=== PATIENT | female | born 1990 | race Caucasian/White ===

== ENCOUNTER 2016-09-28 22:36 | Inpatient (IN) | payer OTHER ==
[~2016-09-28] VITALS: Ht 154.9 cm; Wt 80.7 kg
[2016-09-28 22:44] VITALS: BP 122/75
[2016-09-29 00:29] LABS: BASOPHILS # (AUTO) 0.4 K/uL (0.00-0.22); EOSINOPHILS # (AUTO) 0.3 K/uL (0-0.4); EOSINOPHILS % (AUTO) 2.6 % (0.0-4.0); HEMATOCRIT 34.1 % (36-48); HEMOGLOBIN 11.3 g/dL (12.0-16.0); LYMPHOCYTES # (AUTO) 2.2 K/uL (2.5-16.5); LYMPHOCYTES % (AUTO) 22.5 % (20.5-51.1); MEAN CORPUSCULAR HEMOGLOBIN 30 pg (27-31); MEAN CORPUSCULAR HGB CONC 33 g/dL (33-37); MEAN CORPUSCULAR VOLUME 92 fL (80-94); MONOCYTES # (AUTO) 0.6 K/uL (0.8-1.0); MONOCYTES % (AUTO) 6.4 % (1.7-9.3); NEUTROPHILS # (AUTO) 6.4 K/uL (1.8-7.7); NEUTROPHILS % (AUTO) 64.5 % (42.2-75.2); PLATELET COUNT (AUTO) 280 K/uL (140-450); RED BLOOD CELL COUNT(AUTO) 3.71 MIL/uL (4.20-5.40); RED CELL DISTRIBUTION WIDTH 12.3 % (11.6-13.7); WHITE BLOOD COUNT (AUTO) 9.9 K/uL (4.8-10.8)
[2016-09-29 00:41] LABS: ALBUMIN 3.4 g/dL (3.4-5.0); ANION GAP 12.3 (8-16); CALCIUM 8.8 mg/dL (8.5-10.1); CARBON DIOXIDE 26.2 mmol/L (21-32); CREATININE 0.8 mg/dL (0.6-1.3); POTASSIUM 3.5 mmol/L (3.5-5.1); THYROID STIMULATING HORMONE 2.72 uIU/mL (0.34-3.74); TOTAL BILIRUBIN 0.2 mg/dL (0.0-1.0); TOTAL PROTEIN, SERUM 7.4 g/dL (6.4-8.2)
[2016-09-29 00:43] LABS: PARTIAL THROMBOPLASTIN TIME 28.5 secs (22-35.6); PROTHROMBIN TIME 10.6 secs (10.8-13.4)
[2016-09-29] MEDS ORDERED: NACL 0.9% 1,000 ML IV SCH ×2 (03:59→04:40)
[2016-09-29] MEDS ORDERED: DOCUSATE SODIUM 100 MG GELCAP PO PRN (04:00)
[2016-09-29] MEDS ORDERED: MORPHINE SULFATE 2 MG/ML SYR IVP PRN (04:00)
[2016-09-29] MEDS ORDERED: HYDROcodone/APAP 7.5/325 MG 1 TAB PO PRN (04:00)
[2016-09-29] MEDS ORDERED: ACETAMINOPHEN 325 MG TAB PO PRN (04:00)
[2016-09-29] MEDS ORDERED: ONDANSETRON 4 MG/2 ML VIAL IM/IVP PRN (04:00)
[2016-09-29 04:23] LABS: APPEARANCE,URINE SL CLOUDY (CLEAR); BILIRUBIN,URINE NEGATIVE (NEGATIVE); BLOOD, URINE TRACE-I (NEGATIVE); COLOR,URINE YELLOW (YELLOW); LEUKOCYTE ESTERASE ,URINE NEGATIVE (NEGATIVE); NITRITE, URINE NEGATIVE (NEGATIVE); PROTEIN,URINE NEGATIVE (NEGATIVE); UGLUCOSE NEGATIVE (NEGATIVE); UROBILINOGEN,URINE 0.2 EU/dL (0.2 - 1)
[2016-09-29 04:35] VITALS: BP 107/58
[2016-09-29 04:38] LABS: BACTERIA,URINE FEW /HPF (None Seen); WBC,URINE 0-5 (RARE) /HPF (0-5)
[2016-09-29 04:45] LABS: CHOL/HDL RATIO 2.6 (1-4.5); FREE T4 (FREE THYROXINE) 0.85 ng/dL (0.76-1.46); PHOSPHORUS 3.4 mg/dL (2.5-4.9)
[2016-09-29 08:00] VITALS: BP 118/66
[2016-09-29] MEDS: METHOTREXATE 100 MG/4 ML VIAL IM SCH ×2 (11:24→11:25)
[2016-09-29 12:00] VITALS: BP 99/59
[2016-09-30 08:20] LABS: HEMOGLOBIN A1C 5.3 % (4.8-5.6); T4 (THYROXINE) 7.1 ug/dL (4.5-12.0)
== END 2016-09-29 14:00 | disposition home or self-care (01) | DRG 566 ==
LOC: MED 22:36 → MTU 09-29 04:04
PROVIDERS: ADMIT Family Medicine; ATTEND Family Medicine
DX: O00.90 Unspecified ectopic pregnancy without intrauterine pregnancy (principal); E66.9 Obesity, unspecified; O99.211 Obesity complicating pregnancy, first trimester; Z68.34 Body mass index [BMI] 34.0-34.9, adult; Z98.51 Tubal ligation status
CPT/HCPCS: 36415; 76801; 80053; 81001; 82150; 83036; 83690; 83735; 83880; 84100; 84436; 84439; 84443; 84479; 84702; 85025; 85610; 85730; 86900; 86901; 87081; 99285; J7030; J7042; J9260; Q0092